=== PATIENT | male | born 1945 | race Caucasian/White ===

== ENCOUNTER 2017-02-01 00:42 | Emergency (ER) | payer OTHER ==
[2017-02-01 01:12] LABS: % IMMATURE GRANULYOCYTES 0.1 % (0.0-1.1); ABSOLUTE IMMATURE GRANULOCYTES 0.01 10^3/uL (0.00-0.10); ADD DIFF? NO; ADD MORPH? NO; ADD SCAN? NO; ATYPICAL LYMPHOCYTE FLAG 0 (0-99); FRAGMENT RBC FLAG 0 (0-99); HEMATOCRIT 44.9 % (40.0-51.0); HEMOGLOBIN 15.2 g/dL (13.7-17.5); LEFT SHIFT FLG 10 (0-99); LIPEMIA HEMOLYSIS FLAG 90 (0-99); MEAN CELL HEMOGLOBIN 30.9 pg (27.9-34.1); MEAN CELL HEMOGLOBIN CONCENTR. 33.9 g/dL (32.4-36.7); MEAN CELL VOLUME 91.3 fL (81.5-99.8); MEAN PLATELET VOLUME 8.7 fL (8.7-11.7); PLATELET CLUMPS FLAG 0 (0-99); PLATELET COUNT 103 10^3/uL (150-400); RED BLOOD CELL COUNT 4.92 10^6/uL (4.40-6.38); RED CELL DISTRIBUTION WIDTH 12.2 % (11.5-15.2)
[2017-02-01 01:15] LABS: COLOR YELLOW; LEUKOCYTE ESTERASE,URINE TRACE (NEGATIVE); NITRITE,URINE POSITIVE (NEGATIVE)
[2017-02-01 01:20] LABS: BACTERIA TRACE /hpf (NONE SEEN); MUCUS TRACE /lpf (NONE-1+); RBC,URINE 50-182 /hpf (0-3); WBC,URINE 15-25 /hpf (0-3)
--- NOTE | 2017-02-01 01:23 | EDPHY ---
H & P Stated Complaint: c/o lethargy today, began feeling cold and shaking, c/o difficulty urinatin Time Seen by Provider: 02/01/17 00:59 HPI/ROS: Chief Complaint: Fever, shaking HPI: 71-year-old male with a history of benign prostate hypertrophy presenting with a decreasing energy today. Has had an increasing urge to urinate is only producing few drops add a time. At Eleven o'clock this evening he started started s shaking. Checked his temperature at home and was 101. Has not taken any medicine for this. No abdominal pain. No nausea or vomiting. No chest pain. He has chronic shortness of breath secondary to interstitial lung disease with a chronic cough but no new changes in this. Cough is nonproductive. ROS: 10 point Review of Systems is negative except as noted in the HPI. PMH: BPH, interstitial lung disease, GERD, hyperlipidemia Medications: Oxygen at night, Lipitor, tamsulosin, omeprazole, Plaquenil Allergies: No known drug allergies Social History: No smoking, positive alcohol, occasional edible marijuana Family History: non-contributory Physical Exam: Gen: Awake, Alert, No Distress HEENT: Nose: no rhinorrhea Eyes: PERRLA, EOMI Mouth: Moist mucosa Neck: Supple, no JVD Chest: nontender, lungs clear to auscultation Heart: S1, S2 normal, no murmur Abd: Soft, non-tender, no guarding Back: no CVA tenderness, no midline tenderness Ext: no edema, non-tender Skin: no rash Neuro: CN II-XII intact, Sensation grossly intact, Strength 5/5 in bilateral upper and lower extremities - Personal History Tetanus Vaccine Date: < 10 YEARS - Medical/Surgical History Hx Asthma: No Hx Chronic Respiratory Disease: Yes Hx Diabetes: No Hx Cardiac Disease: Yes Hx Renal Disease: No Hx Cirrhosis: No Hx Alcoholism: No Hx HIV/AIDS: No Hx Splenectomy or Spleen Trauma: No Other PMH: Gi Bleed, R ankle break, INTERSITIAL LUNG DISEASE, HYPERCHOLESTEMIA - Social History Smoking Status: Former smoker Constitutional: Initial Vital Signs Temperature (C) 37.6 C 02/01/17 00:47 Heart Rate 96 02/01/17 00:47 Respiratory Rate 20 02/01/17 00:47 Blood Pressure 116/72 02/01/17 00:47 O2 Sat (%) 91 L 02/01/17 00:47 O2 Delivery Mode Room Air Allergies/Adverse Reactions: No Known Allergies Allergy (Verified 02/01/17 00:52) Home Medications: Medication Instructions Recorded Calcium Carb W/Vit D [Calcium Carb 1,000 mg PO BID 04/19/14 W/Vit D 500/200 (*)] Fluticasone Nasal [Flonase Nasal 2 sprays [place] DAILY 04/19/14 [place]] [place]-3 Fatty Acids [Fish Oil 1000 1,000 mg PO DAILY 04/19/14 mg (*)] Omeprazole [Prilosec 20 mg] 20 mg PO DAILY 04/19/14 Tamsulosin HCl [Flomax 0.4 MG (*)] 0.4 mg PO HS 04/19/14 Zolpidem Tartrate [Ambien 10 mg] 5 mg PO HS PRN 04/19/14 Lipitor 02/25/16 Naproxen 02/25/16 Cephalexin [Keflex (*)] 500 mg PO Q6H #40 cap 02/01/17 Phenazopyridine HCl [Pyridium] 200 mg PO TID #6 tab 02/01/17 Medical Decision Making - Diagnostics Imaging Results: CT scan of the abdomen pelvis without contrast shows no evidence of stone, no hydronephrosis, there is some bladder wall thickening consistent with cystitis. Imaging: Discussed imaging studies w/ director sports Radiologist ED Course/Re-evaluation: 71-year-old male presenting with UTI symptoms he is not in retention. No evidence of renal calculus at this time. He has been given a dose of IV ceftriaxone. He has been given and prescription for Keflex. He will follow up with his physician in 2-3 days for re-evaluation, will return for any worsening symptoms. - Data Points Laboratory Results: Laboratory Results 02/01/17 01:00 02/01/17 01:00 02/01/17 02/01/17 02/01/17 01:00 01:00 00:50 WBC 7.13 10^3/uL 10^3/uL (3.80-9.50) RBC 4.92 10^6/uL 10^6/uL (4.40-6.38) Hgb 15.2 g/dL g/dL (13.7-17.5) Hct 44.9 % % (40.0-51.0) MCV 91.3 fL fL (81.5-99.8) MCH 30.9 pg pg (27.9-34.1) MCHC 33.9 g/dL g/dL (32.4-36.7) RDW 12.2 % % (11.5-15.2) Plt Count 103 10^3/uL L 10^3/uL (150-400) MPV 8.7 fL fL (8.7-11.7) Neut % (Auto) 82.6 % H % (39.3-74.2) Lymph % (Auto) 10.7 % L % (15.0-45.0) [place] % (Auto) 1.7 % L % (4.5-13.0) Eos % (Auto) 4.5 % % (0.6-7.6) Baso % (Auto) 0.4 % % (0.3-1.7) Nucleat RBC Rel Count 0.0 % % (0.0-0.2) Absolute Neuts (auto) 5.89 10^3/uL 10^3/uL (1.70-6.50) Absolute Lymphs (auto) 0.76 10^3/uL L 10^3/uL (1.00-3.00) Absolute Monos (auto) 0.12 10^3/uL L 10^3/uL (0.30-0.80) Absolute Eos (auto) 0.32 10^3/uL 10^3/uL (0.03-0.40) Absolute Basos (auto) 0.03 10^3/uL 10^3/uL (0.02-0.10) Absolute Nucleated RBC 0.00 10^3/uL 10^3/uL (0-0.01) Immature Gran % 0.1 % % (0.0-1.1) Immature Gran # 0.01 10^3/uL 10^3/uL (0.00-0.10) Sodium 136 mEq/L mEq/L (134-144) Potassium 4.1 mEq/L mEq/L (3.5-5.2) Chloride 100 mEq/L mEq/L (97-110) Carbon Dioxide 20 mEq/l L mEq/l (22-31) Anion Gap 16 mEq/L mEq/L (8-16) BUN 15 mg/dL mg/dL (7-23) Creatinine 0.9 mg/dL mg/dL (0.7-1.3) Estimated GFR > 60 Glucose 101 mg/dL H mg/dL (70-100) Calcium 9.4 mg/dL mg/dL (8.5-10.4) Urine Color YELLOW Urine Appearance HAZY Urine pH 7.0 (5.0-7.5) Ur Specific [place] 1.014 (1.002-1.030) Urine Protein NEGATIVE (NEGATIVE) Urine Ketones TRACE H (NEGATIVE) Urine Blood 3+ H (NEGATIVE) Urine Nitrate POSITIVE H (NEGATIVE) Urine Bilirubin NEGATIVE (NEGATIVE) Urine Urobilinogen NEGATIVE EU EU (0.2-1.0) Ur Leukocyte Esterase TRACE H (NEGATIVE) Urine RBC 50-182 /hpf H /hpf (0-3) Urine WBC 15-25 /hpf H /hpf (0-3) Ur Epithelial Cells TRACE /lpf /lpf (NONE-1+) Urine Bacteria TRACE /hpf H /hpf (NONE SEEN) Urine Mucus TRACE /lpf /lpf (NONE-1+) Urine Glucose NEGATIVE (NEGATIVE) Medications Given: Discontinued Medications Acetaminophen (Tylenol) 1,000 mg PO EDNOW ONE Stop: 02/01/17 01:30 Last Admin: 02/01/17 01:34 Dose: 1,000 mg Ceftriaxone Sodium/Dextrose (Rocephin 1 Gm (Premix)) 50 mls @ 100 mls/hr IV EDNOW ONE PRN Reason: Protocol Stop: 02/01/17 02:06 Last Admin: 02/01/17 01:43 Dose: 50 mls Phenazopyridine HCl (Pyridium) 200 mg PO EDNOW ONE Stop: 02/01/17 01:51 Last Admin: 02/01/17 01:58 Dose: 200 mg Departure - Departure Disposition: Home, Routine, Self-Care Clinical Impression: UTI (urinary tract infection) Condition: Good Instructions: Urinary Tract Infection in Men (ED) Referrals: Chu Dhillon MD [Primary Care Provider] - As per Instructions Prescriptions: Cephalexin [Keflex (*)] 500 mg PO Q6H #40 cap Phenazopyridine HCl [Pyridium] 200 mg PO TID #6 tab
[2017-02-01] MEDS ORDERED: ACETAMINOPHEN 500 MG TAB PO ONE (01:29)
[2017-02-01 01:45] LABS: ANION GAP 16 mEq/L (8-16); CALCIUM 9.4 mg/dL (8.5-10.4); CARBON DIOXIDE 20 mEq/l (22-31); CHLORIDE 100 mEq/L (97-110); CREATININE 0.9 mg/dL (0.7-1.3); GLOMERULAR FILTRATION RATE > 60; GLUCOSE 101 mg/dL (70-100); POTASSIUM 4.1 mEq/L (3.5-5.2); SODIUM 136 mEq/L (134-144)
[2017-02-01] MEDS ORDERED: PHENAZOPYRIDINE HCL 200 MG TAB PO ONE (01:50)
[2017-02-01 02:39] VITALS: BP 101/58; PULSE 90; RESP 16; TEMP 99.9; O2SAT 95
== END 2017-02-01 02:32 | disposition home or self-care (01) ==
DX: N39.0 Urinary tract infection, site not specified (principal); B96.20 Unspecified Escherichia coli [E. coli] as the cause of diseases classified elsewhere; Z87.891 Personal history of nicotine dependence
CPT/HCPCS: 74176; 96365; 99285; J0696

== ENCOUNTER → 2017-11-12 | Outpatient (CLI) | payer OTHER | LOC: BMCIMAGING 11:48 | PROVIDERS: ATTEND Family Medicine | DX: R05 Cough (principal); R50.9 Fever, unspecified; R91.8 Other nonspecific abnormal finding of lung field ==

== ENCOUNTER → 2018-01-03 | Outpatient (CLI) | payer OTHER | LOC: FIMAGING 13:28 | PROVIDERS: ATTEND Internal Medicine | DX: J84.9 Interstitial pulmonary disease, unspecified (principal); R91.8 Other nonspecific abnormal finding of lung field ==

== ENCOUNTER → 2018-08-14 | Outpatient (CLI) | payer OTHER ==
[~2018-08-14] MED LIST: IOPAMIDOL (ISOVUE-300) 200 ML BTL ONE
== END ==
LOC: FIMAGING 14:44
PROVIDERS: ATTEND Urology
DX: Z13.89 Encounter for screening for other disorder (principal); Z87.448 Personal history of other diseases of urinary system; Z87.891 Personal history of nicotine dependence
CPT/HCPCS: 82565-PO; Q9967